=== PATIENT | female | born 1990 | race Caucasian/White ===

== ENCOUNTER 2022-01-02 09:38 | Emergency (ER) | payer MEDICAID ==
[~2022-01-02] VITALS: Ht 154.9 cm; Wt 62.0 kg
[2022-01-02 10:22] VITALS: BP 132/73
[2022-01-02] MEDS ORDERED: IBUP800T27 PO (10:51)
== END 2022-01-02 10:59 | disposition home or self-care (01) ==
LOC: ER 09:38
DX: S93.402A Sprain of unspecified ligament of left ankle, initial encounter (principal); X50.1XXA Overexertion from prolonged static or awkward postures, initial encounter; Y93.89 Activity, other specified; Y92.89 Other specified places as the place of occurrence of the external cause; Y99.8 Other external cause status
CPT/HCPCS: 73610